=== PATIENT | female | born 1980 | race African-American/Black ===

== ENCOUNTER 2016-11-11 11:40 | Emergency (ER) | payer OTHER, BC ==
[~2016-11-11] VITALS: Ht 162.6 cm; Wt 81.7 kg
[~2016-11-11 11:40] MED LIST: ACEBUTOLOL HCL400 MG; ACETAMINOPHEN325 M1 PO; B-12 IM; B12INJ IM; CIPRO250 M2 PO; COUMADIN 5 MG TA5 M1 PO; DIOVAN160 MG PO; ENOXAPARIN100 MG/1 M SQ; ENOXAPARIN120 MG/0.8 SQ; L-THYROXINE PO; LASIX 20 MG TAB20 MG PO; LISINOPRIL40 MG PO; MIRALAX255 GM PO; MULTIVITAMINS1 EAC7 PO; NORCO 5-325 TA1 EACH PO; OXYCODONE HCL5 M1 PO; PERCOCET 5-3251 EACH PO; PRENATAL; SYNTHROID300 MCG PO; T3 COMPOUND PO; TOPROL XL100 MG PO; TOPROL XL25 MG PO; TOPROL XL50 MG PO
[2016-11-11] MEDS ORDERED: VITAMIN B-12100 MC1 PO (11:45)
[2016-11-11] MEDS ORDERED: TOPROL XL25 MG PO (11:45)
[2016-11-11] MEDS ORDERED: PROTONIX40 M4 PO (11:46)
[2016-11-11] MEDS ORDERED: VITAMIN D5000 UNIT PO (11:47)
[2016-11-11] MEDS ORDERED: CARAFATE 1 GM TA1 G1 PO (11:47)
[2016-11-11 12:35] VITALS: BP 00/00
== END 2016-11-11 12:40 | disposition left against medical advice (07) ==
LOC: ER 11:40
DX: M79.602 Pain in left arm (principal); I13.10 Hypertensive heart and chronic kidney disease without heart failure, with stage 1 through stage 4 chronic kidney disease, or unspecified chronic kidney disease; N18.9 Chronic kidney disease, unspecified

== ENCOUNTER → 2016-12-31 | Outpatient (CLI) | payer OTHER, BC ==
[~2016-12-31] VITALS: Ht 162.6 cm; Wt 83.9 kg
[~2016-12-31] MED LIST changes: +BIOTIN5 MG PO; +CARAFATE 1 GM TA1 G1 PO; +CARAFATE1 GM PO; +DIOVAN320 MG PO; +MAXALT MLT ODT10 M1 PO; +METOPROLOL SUCC50 MG PO; +PROTONIX40 M1 PO; +PROTONIX40 M4 PO; +PROZAC20 M1 PO; +SYNTHROID175 MCG PO; +VITAMIN B-12100 MC1 PO; +VITAMIN B-12500 MCG PO; +VITAMIN D5000 UNIT PO
--- NOTE | ~2016-12-31 | O ---
[facility] [place] [address] OPERATIVE REPORT Name: MICHAEL CLEVELAND Room #: [facility]#: [id number] Admission: 12/31/16 Attend Phys: Silverio Garrido MD, Discharge: Date of : 80 Report #: [id number] THIS REPORT FOR: //name// CC: Faith Garrido DATE OF SERVICE: 12/31/2016 DATE OF SERVICE: 12/31/2016 PREOPERATIVE DIAGNOSES: 1. Gastroesophageal reflux disease. 2. History of laparoscopic sleeve gastrectomy. POSTOPERATIVE DIAGNOSES: 1. Gastroesophageal reflux disease with esophagitis. 2. Hiatal hernia. 3. History of laparoscopic sleeve gastrectomy. PROCEDURE PERFORMED: Thorough esophagogastroduodenoscopy (EGD). ANESTHESIA: Monitored anesthesia care. ESTIMATED BLOOD LOSS: None. COMPLICATIONS: None. SPECIMENS: None. INDICATIONS: The patient is a 36-year-old female who presents nearly a year out from undergoing laparoscopic sleeve gastrectomy for weight loss. The patient has had an excellent result as far as weight loss is concerned, however, has had ongoing issues with severe gastroesophageal reflux disease necessitating both PPI and Carafate therapy for symptomatic control. As the patient is having symptoms that are recalcitrant to maximum medical therapy, indication was for EGD today in workup for the possibility of an antireflux procedure such as the LINX device. DESCRIPTION OF PROCEDURE: After explaining the risks, benefits and alternatives of the procedure with the patient and obtaining consent, the patient was brought to the endoscopy suite supine on her hospital bed. After conducting a thorough timeout procedure verifying correct patient and procedure, the patient was positioned in the left lateral decubitus position and was given monitored anesthesia care. Once adequate anesthesia was obtained, her SCDs were hooked up to pneumatic compression device and the Fujinon upper endoscope was used to intubate the oropharynx. This was easily traversed into the esophagus down into [facility] [address] [place] [address] OPERATIVE REPORT Name: MICHAEL CLEVELAND Room #: [facility]#: [id number] Admission: 12/31/16 Attend Phys: Silverio Garrido MD, Discharge: Date of : 80 Report #: [id number] the sleeved stomach and past the pylorus into the duodenum. Slow and careful withdrawal of the EGD scope from the second portion of the duodenum back showed no evidence of duodenitis or gastritis, nor were there any mass lesions or ulcerations. A retroflexion view of the scope within the gastric antrum was performed and the stomach was fully insufflated to where I could see down the sleeve; however, could not withdraw the scope into the mid upper portion of the stomach secondary to the narrow sleeve not allowing for the retroflexed scope to be withdrawn. That being said, upon insufflating the stomach, it was readily apparent that the patient had a hiatal hernia and photodocumentation was taken and provided to the patient and the permanent medical record of this. The scope was straightened out and slowly withdrawn where the hiatal hernia was again identified. When the scope was withdrawn into the distal esophagus, there was evidence of esophagitis without Wade changes or mass lesions. The stomach was now fully desufflated. The scope was removed and passed off the field completing the procedure. At the end of the procedure, all instrument, needle and sponge counts were correct. The patient tolerated the endoscopy without issue, where she was transferred to recovery room in stable condition with no complications. <ELECTRONICALLY SIGNED> By: Silverio Garrido MD, FACS 01/01/17 [id number] Silverio Garrido MD, FACS /nt
== END | disposition home or self-care (01) ==
LOC: GI 06:02
DX: K21.0 Gastro-esophageal reflux disease with esophagitis (principal); K44.9 Diaphragmatic hernia without obstruction or gangrene; I12.9 Hypertensive chronic kidney disease with stage 1 through stage 4 chronic kidney disease, or unspecified chronic kidney disease; N18.9 Chronic kidney disease, unspecified; G43.909 Migraine, unspecified, not intractable, without status migrainosus; Z98.890 Other specified postprocedural states; Z85.850 Personal history of malignant neoplasm of thyroid; Z98.84 Bariatric surgery status; Z79.899 Other long term (current) drug therapy
CPT/HCPCS: 62110; 62900